=== PATIENT | female | born 1985 | race African-American/Black ===

== ENCOUNTER 2016-09-07 17:03 | Emergency (ER) | payer OTHER ==
[~2016-09-07] VITALS: Ht 149.9 cm; Wt 117.9 kg
[~2016-09-07 17:03] MED LIST: ACETAMINOPHEN-1 EAC1; APAP500; AUGMENTIN 875875 MG PO; CLINDAMYCIN 600MG; COLACE 100 MG100 MG; IBUPROFEN 600600 M1; IBUPROFEN 600600 M1 PO; IBUPROFEN 800800 MG PO; LANOLIN56 GM; NAPROSYN500 MG PO; NORCO 5-325 TA1 EACH PO; ZOFRAN ODT4 MG PO
[2016-09-07 17:06] VITALS: BP 128/69
[2016-09-07] MEDS ORDERED: KEFLEX500 MG PO (17:42)
== END 2016-09-07 17:47 | disposition home or self-care (01) ==
LOC: ER 17:03
DX: S80.861A Insect bite (nonvenomous), right lower leg, initial encounter (principal); W57.XXXA Bitten or stung by nonvenomous insect and other nonvenomous arthropods, initial encounter; Y93.89 Activity, other specified; Y92.89 Other specified places as the place of occurrence of the external cause; Y99.8 Other external cause status; Z98.890 Other specified postprocedural states; Z87.891 Personal history of nicotine dependence